=== PATIENT | female | born 1970 | race Caucasian/White ===

== ENCOUNTER 2020-09-21 22:09 | Emergency (ER) | payer BC, OTHER ==
[2020-09-21] MEDS ORDERED: Acetaminophen/HYDROcodone 325-5 MG Tab PO ONE (22:31)
[2020-09-21] MEDS ORDERED: HYDROmorphone 1 MG/ML Syringe IVPUSH ONE (23:00)
[2020-09-21] MEDS ORDERED: Ondansetron 4 MG/2 ML SDV IVPUSH ONE (23:00)
[2020-09-21] MEDS ORDERED: Sodium Chloride 0.9% 1,000 ML IV ONE (23:00)
--- NOTE | 2020-09-21 23:56 | EDM.PDOC ---
ED HPI GENERAL MEDICAL PROBLEM - General Chief Complaint: Lower Extremity Injury/Pain Stated Complaint: RT ANKLE INJURY Time Seen by Provider: 09/21/20 23:51 Source of Information: Reports: Patient, Family, RN Notes Reviewed History Limitations: Reports: No Limitations - History of Present Illness INITIAL COMMENTS - FREE TEXT/NARRATIVE: 50-year-old female presents emergency department today following an ankle injury she was initially walking rolled her left ankle and then she went to catch herself and ended up injuring her right ankle. 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: Musculoskeletal History: Reports: Fracture Other Musculoskeletal History: toes and fingers Neurological History: Reports: Migraines Psychiatric History: Reports: ADHD Hematologic History: Reports: None Immunologic History: Reports: None Oncologic (Cancer) History: Reports: None Dermatologic History: Reports: None - Infectious Disease History Infectious Disease History: Reports: Chicken Pox - Past Surgical History HEENT Surgical History: Reports: Other (See Below) Other HEENT Surgeries/Procedures: lazy eye surgery GI Surgical History: Reports: None Female Surgical History: Reports: Section Social & Family History - Caffeine Use Caffeine Use: Reports: None - Recreational Drug Use Recreational Drug Use: No Review of Systems - Review of Systems Review Of Systems: See Below Musculoskeletal: Reports: Joint Pain ED EXAM, GENERAL - Physical Exam Exam: See Below Free Text/Narrative:: Examination the right ankle there is an obvious deformity she declined pedal pulses this weekend though sensation is intact, right ankle good pedal pulse good sensation some tenderness with anterior drawer test Exam Limited By: No Limitations General Appearance: Alert, Mild Distress ED TRAUMA EXTREMITY PROCEDURES - Joint Reduction Right Ankle Sedation: Conscious Sedation Pre-Procedure NV Status: Normal Post-Procedure NV Status: Normal Technique: Traction/Counter Traction Number of Attempts: 1 Post-Reduction Imaging: Completely Reduced, Fracture Seen Joint Reduction Complications: No - Splinting Right Lower Extremity Splint Site: Ankle Pre-Procedure NV Status: Normal Post-Procedure NV Status: Normal Splint Material: Fiberglass Splint Design: Posterior Applied & Form Fitted By: ProviderParmjit Provider Post-Splint Application NV Check: NV Status Normal, Good Position Complications: No Course - Vital Signs Last Recorded V/S: Last Vital Signs Temp 97 F 09/21/20 22:18 Pulse 55 L 09/21/20 22:18 Resp 22 H 09/21/20 22:18 BP 141/88 H 09/21/20 22:18 Pulse Ox 95 09/21/20 22:18 - Orders/Labs/Meds Orders: Active Orders 24 hr Category Date Time Status Ankle 2V Rt [CR] Stat Exams 09/21/20 23:31 Ordered Ankle Min 3V Lt [CR] Stat Exams 09/21/20 23:01 Taken Ankle Min 3V Rt [CR] Stat Exams 09/21/20 22:39 Taken Meds: Medications Discontinued Medications Generic Name Dose Route Start Last Admin Trade Name Freq PRN Reason Stop Dose Admin Hydrocodone Bitart/Acetaminophen 1 tab 09/21/20 22:31 09/21/20 22:35 Acetaminophen/Hydrocodone 325-5 Mg Tab PO 09/21/20 22:32 1 tab ONETIME ONE Administration Hydromorphone HCl 1 mg 09/21/20 23:00 09/21/20 23:55 Hydromorphone 1 Mg/Ml Syringe IVPUSH 09/21/20 23:01 1 mg ONETIME ONE Administration Sodium Chloride 1,000 mls @ 999 mls/hr 09/21/20 23:00 09/21/20 23:34 Normal Saline IV 09/22/20 00:00 999 mls/hr .BOLUS ONE Administration Ondansetron HCl 4 mg 09/21/20 23:00 09/21/20 23:54 Ondansetron 4 Mg/2 Ml Sdv IVPUSH 09/21/20 23:01 4 mg ONETIME ONE Administration Departure - Departure Time of Disposition: 00:15 Disposition: DC/Tfer to Acute Hospital 02 Condition: Fair Clinical Impression: Right fibular fracture Qualifiers: Encounter type: initial encounter Fibula location: distal Fracture type: closed Fracture morphology: torus Qualified Code(s): S82.821A - Torus fracture of lower end of right fibula, initial encounter for closed fracture - Discharge Information Referrals: PCP,None [Primary Care Provider] - Forms: ED Department Discharge Sepsis Event Note (ED) - Evaluation Sepsis Screening Result: No Definite Risk - Focused Exam Vital Signs: Vital Signs Temp Pulse Resp BP Pulse Ox 09/21/20 22:18 97 F 55 L 22 H 141/88 H 95 09/21/20 22:15 97 F 55 L 22 H 141/88 H 95 - My Orders Last 24 Hours: My Active Orders 09/21/20 23:31 Ankle 2V Rt [CR] Stat - Assessment/Plan Last 24 Hours: My Active Orders 09/21/20 23:31 Ankle 2V Rt [CR] Stat Plan: Assessment Acuity = acute Site and laterality = right fibular fracture with right ankle dislocation Etiology = secondary to twisting injury Manifestations = none Location of injury = Home Lab values = x-ray describes a fracture above Plan Call discussed case with orthopedics on-call [facility] at 00 10 kindly excepted the patient in transport will be transported via private vehicle This note was dictated using [employer] voice recognition software please call with any questions on syntax or grammar.
[2020-09-22 00:59] VITALS: BP 116/64; PULSE 84
--- NOTE | 2020-09-23 09:40 | CR ---
Ankle Min 3V Rt, Ankle Min 3V Lt CLINICAL HISTORY: Pain and deformity FINDINGS: RIGHT: There is a displaced fracture of the distal fibula. There is a fracture of the lateral tibial articulation and posterior tibial plafond and. There is lateral subluxation of the talus LEFT: No fracture or dislocation is identified. The ankle mortise is anatomic. There is some soft tissue swelling in the distal soft tissues of the calf. IMPRESSION: Fracture subluxation right tib-fib Negative left tib-fib
--- NOTE | 2020-09-23 09:42 | CR ---
Ankle 2V Rt CLINICAL HISTORY: Postreduction FINDINGS: There is been some reduction and fibular displacement. There has been reduction of the tibiotalar dislocation. Impression: Some reduction in fracture dislocation
== END 2020-09-22 00:59 ==
LOC: JP.ED 22:09
DX: S82.821A Torus fracture of lower end of right fibula, initial encounter for closed fracture (principal); W22.8XXA Striking against or struck by other objects, initial encounter
CPT/HCPCS: 27788; 73600; 73610; 96374; 96375; 99284; A9270; J1170; J2405; J7030

== ENCOUNTER 2020-10-23 20:36 | Emergency (ER) | payer BC ==
--- NOTE | 2020-10-23 20:52 | EDM.PDOC ---
ED HPI GENERAL MEDICAL PROBLEM - General Chief Complaint: Headache Stated Complaint: NAUSEA Time Seen by Provider: 10/23/20 21:05 Source of Information: Reports: Patient, Old Records History Limitations: Reports: No Limitations - History of Present Illness INITIAL COMMENTS - FREE TEXT/NARRATIVE: Maryam is a 50-year-old female presenting to the ED from home for evaluation of headache, fever and chills, generalized malaise, and a rash on her right flank. Patient was seen earlier today in the [facility] clinic by Terri England APRN CNP where she was diagnosed with possible Lyme's disease causing erythema migrans. She was given ceftriaxone 2 2 g IM and started on doxycycline 100 mg 2 times a day for 21 days. She also had some bilirubin and ketones in her urine but no evidence for a urinary tract infection. Her symptoms started 5 days ago and have continued to worsen. She did have a CBC and comprehensive metabolic panel with a normal CBC and a comprehensive metabolic panel showing elevation of the transaminase. Still pending are a Babesia Rojsarichard Hernandezdy, Anaplasma/or leukemia, and Lyme's disease antibody test. Because of the erythema migrans they initiated treatment for Lyme's disease, but also told the patient to come the ER if she is not improving. She is here now because of worsening headache, nausea and vomiting. The patient states that her symptoms started 5 days ago with diarrhea and fever with chills. She did not have a thermometer to be able to check her temperature but she states that she was under a bunch of blankets with a heating pad for most of the day. She started develop nausea and vomiting on Wednesday (3 days ago) and started to have a rash on the right flank that started yesterday. She was seen in the [facility] clinic today and the rash had significantly worsened in size, heat, redness, and it appears to be consistent with erythema migrans or target lesion. It measures approximately 10.2 x 7.0 cm. It is tender, hot, red, and swollen. Patient is unaware of any tick bites. When she first noticed that she thought she just had an insect bite. 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: Musculoskeletal History: Reports: Fracture Other Musculoskeletal History: toes and fingers Neurological History: Reports: Migraines Psychiatric History: Reports: ADHD Endocrine/Metabolic History: Reports: None Hematologic History: Reports: None Immunologic History: Reports: None Oncologic (Cancer) History: Reports: None Dermatologic History: Reports: None - Infectious Disease History Infectious Disease History: Reports: Chicken Pox - Past Surgical History HEENT Surgical History: Reports: Other (See Below) Other HEENT Surgeries/Procedures: lazy eye surgery GI Surgical History: Reports: None Female Surgical History: Reports: Section Social & Family History - Caffeine Use Caffeine Use: Reports: None ED ROS GENERAL - Review of Systems Review Of Systems: See Below Constitutional: Reports: Fever, Chills, Malaise, Decreased Appetite HEENT: Reports: Throat Pain (After vomiting) Respiratory: Reports: No Symptoms Cardiovascular: Reports: No Symptoms GI/Abdominal: Reports: Abdominal Pain, Diarrhea, Nausea, Vomiting : Reports: Flank Pain Musculoskeletal: Reports: Joint Pain Skin: Reports: Rash, Erythema Neurological: Reports: Headache Psychiatric: Reports: Anxiety Hematologic/Lymphatic: Reports: No Symptoms Immunologic: Reports: No Symptoms ED EXAM, GENERAL - Physical Exam Exam: See Below Exam Limited By: No Limitations General Appearance: Alert, Anxious, Mild Distress Eye Exam: Bilateral Eye: EOMI, PERRL Throat/Mouth: Normal Inspection, Normal Lips, Normal Oropharynx, Normal Voice, No Airway Compromise Head: Atraumatic, Normocephalic Neck: Normal Inspection, Supple, Non-Tender, Full Range of Motion. No: Lymphadenopathy (R), Lymphadenopathy (L) Respiratory/Chest: No Respiratory Distress, Lungs Clear, Normal Breath Sounds Cardiovascular: Normal Peripheral Pulses, Regular Rate, Rhythm, No Murmur Peripheral Pulses: 2+: Radial (L), Radial (R) GI/Abdominal: Soft, No Distention, Tender (Diffusely mildly tender), Abnormal Bowel Sounds (Hyperactive bowel sounds). No: Guarding, Rigid, Rebound Back Exam: Normal Inspection Extremities: Normal Inspection, Normal Range of Motion, Normal Capillary Refill Neurological: Alert, Oriented, Normal Cognition, No Motor/Sensory Deficits Psychiatric: Anxious Skin Exam: Warm, Erythema (Large target lesion measuring 10.2 x 7.0 cm co nsistent with erythema migrans), Increased Warmth Lymphatic: No Adenopathy Course - Vital Signs Last Recorded V/S: Last Vital Signs Temp 36.6 C 10/24/20 00:55 Pulse 85 10/23/20 23:10 Resp 16 10/23/20 21:00 BP 104/60 10/23/20 23:10 Pulse Ox 92 L 10/23/20 23:10 Orthostatic Blood Pressure [ 104/63 Standing] Orthostatic Blood Pressure [ 104/61 Sitting] Orthostatic Blood Pressure [ 102/58 Supine] - Orders/Labs/Meds Orders: Active Orders 24 hr Category Date Time Status Sodium Chloride 0.9% [Normal Saline] 1,000 ml Med 10/24/20 00:39 Active IV .BOLUS Sodium Chloride 0.9% [Normal Saline] 1,000 ml Med 10/23/20 21:00 Active IV ASDIRECTED Sodium Chloride 0.9% [Normal Saline] 1,000 ml Med 10/24/20 00:30 Active IV ASDIRECTED Sodium Chloride 0.9% [Saline Flush] Med 10/23/20 20:57 Active 10 ml FLUSH ASDIRECTED PRN Saline Lock Insert [OM.PC] Routine Oth 10/23/20 20:57 Ordered Medication Orders Sodium Chloride (Normal Saline) 1,000 mls @ 999 mls/hr IV ASDIRECTED [facility] Last Admin: 10/23/20 21:17 Dose: 999 mls/hr Documented by: [place] Sodium Chloride (Normal Saline) 1,000 mls @ 999 mls/hr IV ASDIRECTED [facility] Last Admin: 10/23/20 23:36 Dose: 999 mls/hr Documented by: [place] Sodium Chloride (Normal Saline) 1,000 mls @ 500 mls/hr IV .BOLUS ONE Stop: 10/24/20 02:38 Last Admin: 10/24/20 01:17 Dose: 500 mls/hr Documented by: [place] Sodium Chloride (Sodium Chloride 0.9% 10 Ml Syringe) 10 ml FLUSH ASDIRECTED PRN PRN Reason: Keep Vein Open Last Admin: 10/23/20 21:10 Dose: 10 ml Documented by: [place] Labs: Laboratory Tests 10/23/20 10/23/20 10/23/20 Range/Units 21:07 21:07 21:17 WBC 8.2 (4.5-11.0) K/uL RBC 4.65 (3.30-5.50) M/uL Hgb 13.2 (12.0-15.0) g/dL Hct 38.8 (36.0-48.0) % MCV 83 (80-98) fL MCH 28 (27-31) pg MCHC 34 (32-36) % Plt Count 169 (150-400) K/uL Add Manual Diff Yes Neutrophils % (Manual) 79 H (36-66) % Band Neutrophils % 8 (5-11) % Lymphocytes % (Manual) 5 L (24-44) % Monocytes % (Manual) 8 H (2-6) % Sodium 132 L (140-148) mmol/L Potassium 3.5 L (3.6-5.2) mmol/L Chloride 96 L (100-108) mmol/L Carbon Dioxide 22 (21-32) mmol/L Anion Gap 17.5 H (5.0-14.0) mmol/L BUN 9 (7-18) mg/dL Creatinine 1.0 (0.6-1.0) mg/dL Est Cr Clr Drug Dosing 74.40 mL/min Estimated GFR (MDRD) 59 L (>60) Glucose 105 (74-106) mg/dL Lactic Acid (0.4-2.0) mmol/L Calcium 8.7 (8.5-10.1) mg/dL Total Bilirubin 0.8 (0.2-1.0) mg/dL AST 83 H (15-37) U/L ALT 128 H (12-78) U/L Alkaline Phosphatase 91 (46-116) U/L C-Reactive Protein 16.49 H (0.0-0.3) mg/dL Total Protein 7.2 (6.4-8.2) g/dL Albumin 3.2 L (3.4-5.0) g/dL Globulin 4.0 H (2.3-3.5) g/dL Albumin/Globulin Ratio 0.8 L (1.2-2.2) 10/24/20 Range/Units 01:04 WBC (4.5-11.0) K/uL RBC (3.30-5.50) M/uL Hgb (12.0-15.0) g/dL Hct (36.0-48.0) % MCV (80-98) fL MCH (27-31) pg MCHC (32-36) % Plt Count (150-400) K/uL Add Manual Diff Neutrophils % (Manual) (36-66) % Band Neutrophils % (5-11) % Lymphocytes % (Manual) (24-44) % Monocytes % (Manual) (2-6) % Sodium (140-148) mmol/L Potassium (3.6-5.2) mmol/L Chloride (100-108) mmol/L Carbon Dioxide (21-32) mmol/L Anion Gap (5.0-14.0) mmol/L BUN (7-18) mg/dL Creatinine (0.6-1.0) mg/dL Est Cr Clr Drug Dosing mL/min Estimated GFR (MDRD) (>60) Glucose (74-106) mg/dL Lactic Acid 1.0 (0.4-2.0) mmol/L Calcium (8.5-10.1) mg/dL Total Bilirubin (0.2-1.0) mg/dL AST (15-37) U/L ALT (12-78) U/L Alkaline Phosphatase (46-116) U/L C-Reactive Protein (0.0-0.3) mg/dL Total Protein (6.4-8.2) g/dL Albumin (3.4-5.0) g/dL Globulin (2.3-3.5) g/dL Albumin/Globulin Ratio (1.2-2.2) Meds: Medications Generic Name Dose Route Start Last Admin Trade Name Derekq PRN Reason Stop Dose Admin Sodium Chloride 1,000 mls @ 999 mls/hr 10/23/20 21:00 10/23/20 21:17 Normal Saline IV 999 mls/hr ASDIRECTED ANA LILIA Administration Sodium Chloride 1,000 mls @ 999 mls/hr 10/24/20 00:30 10/23/20 23:36 Normal Saline IV 999 mls/hr ASDIRECTED ANA LILIA Administration Sodium Chloride 1,000 mls @ 500 mls/hr 10/24/20 00:39 10/24/20 01:17 Normal Saline IV 10/24/20 02:38 500 mls/hr .BOLUS ONE Administration Sodium Chloride 10 ml 10/23/20 20:57 10/23/20 21:10 Sodium Chloride 0.9% 10 Ml Syringe FLUSH 10 ml ASDIRECTED PRN Administration Keep Vein Open Discontinued Medications Generic Name Dose Route Start Last Admin Trade Name Lori PRN Reason Stop Dose Admin Ketorolac Tromethamine 15 mg 10/23/20 21:17 10/23/20 21:24 Ketorolac 30 Mg/Ml Sdv IVPUSH 10/23/20 21:18 15 mg ONETIME ONE Administration Ketorolac Tromethamine 15 mg 10/23/20 22:16 10/23/20 22:45 Ketorolac 30 Mg/Ml Sdv IVPUSH 10/23/20 22:17 15 mg ONETIME ONE Administration Ondansetron HCl 4 mg 10/23/20 20:57 10/23/20 21:15 Ondansetron 4 Mg/2 Ml Sdv IVPUSH 10/23/20 20:58 4 mg ONETIME ONE Administration - Re-Assessments/Exams Free Text/Narrative Re-Assessment/Exam: 10/23/20 22:26 reviewed the patient's labs showing a leukocyte count of 8.2, hemoglobin of 13.2 with hematocrit of 38.8 and a platelet count of 169,000. She does have a left shift with 8% bands. This is a little worrisome for Anaplasma versus Lyme's. Her comprehensive metabolic panel shows a sodium of 132 with a potassium of 3.5, chloride of 96, bicarbonate of 22, BUN of 9 with a creatinine of 1 and a glucose of 105. Her calculated GFR is 59. Her C-reactive protein is markedly elevated at 16.49. Her transaminases are elevated with an AST of 83 and an ALT of 128. Patient was already initiated on therapy for both Lyme's and Anaplasma after receiving Rocephin 2 g IM and being started on doxycycline 100 mg twice daily for 21 days. We did treat her headache with Toradol 30 mg IV. Not only did this help to improve her headache, but it also broke her fever. The Zofran did help with her nausea, she has no longer been vomiting. Departure - Departure Time of Disposition: 01:42 Disposition: Home, Self-Care 01 Clinical Impression: Erythema migrans (Lyme disease), Hyponatremia, Hypokalemia Headache Qualifiers: Headache type: unspecified Headache chronicity pattern: acute headache Intractability: intractable Qualified Code(s): R51.9 - Headache, unspecified - Discharge Information Instructions: Lyme Disease, Hypokalemia, Hyponatremia Referrals: PCP,None [Primary Care Provider] - Forms: ED Department Discharge, ED Department Discharge Care Plan Goals: Based on your labs and the exam, this is likely a tickborne illness, either Lyme disease or anaplasmosis. The treatment for both is the same which is the Rocephin that you received in the clinic and then the doxycycline 100 mg twice daily for 21 days. I have also included a prescription for Zofran to help control the nausea so you are able to continue to hydrate. You will likely feel little change for a couple of days until the antibiotics have a chance to start working. This includes recurrent fever and chills, nausea, body aches and headache. Unfortunately there is nothing that we can do that will instantly make it feel better. Unfortunately steroids or not recommended in this situation and can potentially make things much worse by masking other symptoms. Continue to rest to give your body a chance to recover. I would stick with a simple diet like the BRAT diet, consisting of bananas, rice, applesauce, and toast which are the items that are easier to digest and less likely to cause vomiting or diarrhea. You can also do broths. Return to the ED should your symptoms worsen significantly. Make sure that you push fluids to remain hydrated. Sepsis Event Note (ED) - Focused Exam Vital Signs: Vital Signs Temp Pulse Resp BP Pulse Ox 10/24/20 00:55 36.6 C 10/23/20 23:10 85 104/60 92 L 10/23/20 22:33 94 107/61 91 L 10/23/20 21:53 98 110/59 L 92 L 10/23/20 21:00 38.4 C H 108 H 16 129/69 94 L 10/23/20 20:52 38.4 C H 108 H 16 129/69 94 L - Problem List & Annotations (1) Erythema migrans (Lyme disease) SNOMED Code(s): 74041986 Code(s): A69.20 - LYME DISEASE, UNSPECIFIED Status: Acute Priority: Medium Current Visit: Yes (2) Headache SNOMED Code(s): 03784704 Code(s): R51.9 - HEADACHE, UNSPECIFIED Status: Acute Priority: Medium Current Visit: Yes Qualifiers: Headache type: unspecified Headache chronicity pattern: acute headache Intractability: intractable Qualified Code(s): R51.9 - Headache, unspecified (3) Hypokalemia SNOMED Code(s): 80322160 Code(s): E87.6 - HYPOKALEMIA Status: Acute Priority: Medium Current Visit: Yes (4) Hyponatremia SNOMED Code(s): 02893887 Code(s): E87.1 - HYPO-OSMOLALITY AND HYPONATREMIA Status: Acute Priority: Medium Current Visit: Yes - Problem List Review Problem List Initiated/Reviewed/Updated: Yes - My Orders Last 24 Hours: My Active Orders 10/23/20 20:57 Sodium Chloride 0.9% [Saline Flush] 10 ml FLUSH ASDIRECTED PRN Saline Lock Insert [OM.PC] Routine 10/23/20 21:00 Sodium Chloride 0.9% [Normal Saline] 1,000 ml IV ASDIRECTED 10/24/20 00:30 Sodium Chloride 0.9% [Normal Saline] 1,000 ml IV ASDIRECTED 10/24/20 00:39 Sodium Chloride 0.9% [Normal Saline] 1,000 ml IV .BOLUS - Assessment/Plan Last 24 Hours: My Active Orders 10/23/20 20:57 Sodium Chloride 0.9% [Saline Flush] 10 ml FLUSH ASDIRECTED PRN Saline Lock Insert [OM.PC] Routine 10/23/20 21:00 Sodium Chloride 0.9% [Normal Saline] 1,000 ml IV ASDIRECTED 10/24/20 00:30 Sodium Chloride 0.9% [Normal Saline] 1,000 ml IV ASDIRECTED 10/24/20 00:39 Sodium Chloride 0.9% [Normal Saline] 1,000 ml IV .BOLUS
[2020-10-23] MEDS ORDERED: Sodium Chloride 0.9% 10 ML Syringe FLUSH PRN (20:57)
[2020-10-23] MEDS ORDERED: Ondansetron 4 MG/2 ML SDV IVPUSH ONE (20:57)
[2020-10-23] MEDS ORDERED: Sodium Chloride 0.9% 1,000 ML IV SCH (21:00)
[2020-10-23] MEDS ORDERED: Ketorolac 30 MG/ML SDV IVPUSH ONE ×2 (21:17→22:16)
[2020-10-24] MEDS ORDERED: Sodium Chloride 0.9% 1,000 ML IV SCH (00:30)
[2020-10-24] MEDS ORDERED: Sodium Chloride 0.9% 1,000 ML IV ONE (00:39)
[2020-10-24 02:14] VITALS: BP 95/60; PULSE 89
== END 2020-10-24 02:16 | disposition home or self-care (01) ==
LOC: JP.ED 20:36
DX: A69.20 Lyme disease, unspecified (principal); E87.1 Hypo-osmolality and hyponatremia; E87.6 Hypokalemia
CPT/HCPCS: 36415; 80053; 83605; 85025; 86140; 96374; 96375; 96376; 99284; J1885; J2405; J7030